=== PATIENT | male | born 1950 | race Caucasian/White ===

== ENCOUNTER → 2018-01-26 | Outpatient (CLI) | payer BC ==
[~2018-01-26] MED LIST: GADOBUTROL 10 ML VIAL IVP ONE
== END ==
LOC: FIMAGING 11:56
DX: R97.20 Elevated prostate specific antigen [PSA] (principal); R93.8 Abnormal findings on diagnostic imaging of other specified body structures
CPT/HCPCS: 82565-PO; A9585